=== PATIENT | male | born 1940 | race Caucasian/White ===

== ENCOUNTER → 2017-12-12 | Day surgery (SDC) | payer MEDICARE, BC ==
[2017-12-06 14:45] LABS: BASOPHILS % 0.4 % (0.0-1.0); EOSINOPHILS # (AUTO) 0.1 (0.0-0.4); EOSINOPHILS % 1.3 % (0.0-6.0); HEMATOCRIT 43.6 % (38.2-49.6); HEMOGLOBIN 14.9 g/dL (14.0-18.0); LYMPHOCYTES # (AUTO) 1.6 (1.0-3.2); LYMPHOCYTES % 28.3 % (18.0-39.1); MEAN CORPUSCULAR HEMOGLOBIN 31.8 pg (28-32); MEAN CORPUSCULAR HGB CONC 34.2 g/dL (31-35); MEAN CORPUSCULAR VOLUME 93.2 fL (81-99); MONOCYTES # (AUTO) 0.5 (0.2-0.8); NEUTROPHILS # (AUTO) 3.3 (2.1-6.9); NEUTROPHILS % 60.6 % (38.7-80.0); PLATELET COUNT 201 x10e3/uL (140-360); RED BLOOD COUNT 4.68 x10e6/uL (4.3-5.7)
[2017-12-06 15:05] LABS: ANION GAP 13.3 mmol/L (8-16); BLOOD UREA NITROGEN 16 mg/dL (7-26); BUN/CREATININE RATIO 17 (6-25); CALCIUM 9.7 mg/dL (8.4-10.2); CARBON DIOXIDE 26 mmol/L (22-29); CHLORIDE 104 mmol/L (98-107); CREATININE, SERUM 0.94 mg/dL (0.72-1.25); EST GLOMERULAR FILTRATION RATE > 60 ML/MIN (60-); GLUCOSE 158 mg/dL (74-118); POTASSIUM 4.3 mmol/L (3.5-5.1); SODIUM 139 mmol/L (136-145)
--- NOTE | 2017-12-06 18:05 | Diagnostic Imaging Report ---
EXAMINATION: PA and lateral views of the chest. COMPARISON: None CLINICAL HISTORY: Bladder retention, preop for bladder surgery DISCUSSION: Lines/tubes: None. Lungs: The lungs are well inflated. Linear densities/opacities projecting over the mid aspect of both lungs on the frontal view and anteriorly on the lateral view are likely pleural-based. There is no evidence of pneumonia or pulmonary edema. Pleura: There is no pleural effusion or pneumothorax. Heart and mediastinum: Cardiomediastinal silhouette is unremarkable. Pulmonary vasculature is normal. Bones and soft tissues: No acute bony abnormalities. Degenerative changes in the thoracic spine IMPRESSION: No acute cardiopulmonary abnormalities. Signed by: Dr. Paddy Sexton M.D. on 12/06/2017 6:01 PM
[~2017-12-12] MED LIST: ATORVASTATIN CA20 MG PO; AVODART0.5 MG PO; BELLADONNA/OPIUM 30 MG SUPP RC ONE; CEFTRIAXONE SOD 1 GM VIAL ONE; CEPHALEXIN500 MG PO; CO Q-10200 MG PO; DEXAMETHASONE SOD PHOS INJ 4 MG/ML VIAL ONE; FENTANYL CITRATE/PF 100MCG/2 ML INJ ONE; FLOMAX0.4 MG PO; IOPAMIDOL 610MG/1ML 300 MG/ML VIAL IV ONE; LIDOCAINE HCL 2% LOCAL INJ 5 ML SDV VIAL INJ ONE; LISINOPRIL10 MG PO; METFORMIN HCL500 MG PO; MIDAZOLAM HCL 2 MG/2 ML VIAL ONE; NABUMETONE750 MG; ONDANSETRON HCL INJ 2 MG/ML VIAL ONE; PROPOFOL IV EMULSION 10 MG/ML 20 ML VIAL ONE; SEVOFLURANE INHAL SOLN 250 ML PEN BTL ONE; SIMVASTATIN40 MG PO; ULTRAM50 MG PO
--- NOTE | 2018-01-23 04:06 | Operative Report ---
DATE OF PROCEDURE: December 12, 2017 PREOPERATIVE DIAGNOSES 1. Lesion at the dome of the bladder. 2. Gross hematuria. POSTOPERATIVE DIAGNOSES 1. Lesion at the dome of the bladder. 2. Gross hematuria. 3. Bulbar urethral stricture. OPERATIONS PERFORMED 1. Cystourethroscopy with calibration and dilation of bulbar urethral stricture (separate procedure performed for the diagnosis of stricture). 2. Cystourethroscopy with bilateral ureteral catheterization and retrograde ureteropyelography (separate procedure performed for the hematuria). 3. Interpretation of retrograde ureteropyelography. 4. Cystourethroscopy with bladder biopsy (separate procedure performed to evaluate the lesion at the dome of the bladder). ANESTHESIA: General. COMPLICATIONS: None. CLINICAL SUMMARY: Bret Kim is a 77-year-old man with hematuria. He was brought for the above procedure. He is aware of the risks of bleeding, infection, injury to adjacent structures, need for additional procedures, and elected to proceed. OPERATIVE PROCEDURE IN DETAIL: Informed consent was verified. Bret Kim was properly identified, taken to the operating room, placed on the cystoscopy table in supine position. Anesthesia was uneventfully begun. The patient was then carefully and gently repositioned in dorsal lithotomy position with all pressure points well padded. His genitalia were prepared and draped in usual sterile fashion. The 22.5-Chilean cystoscope sheath with the visual obturator in place was atraumatically inserted to patient's urethra. It was guided down the normal distal urethra to the bulbar region, where there was a urethral stricture. 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 The remainder of the prostate was open, status post photoselective vaporization of the prostate previously. Going to the patient's bladder, where panendoscopy revealed bladder diverticula throughout the bladder. There was a diverticulum that was posteriorly near the dome and there was a lesion that appeared unusual at the dome of the bladder. Should such a lesion be positive for cancer, then this patient would be amenable to a partial cystectomy. An 8-Chilean catheter was used cannulate each ureter and retrograde ureteropyelography was performed. Interpretation retrograde ureteropyelography: Contrast was instilled in retrograde fashion bilaterally. There were no tumors, no stones, and no diverticula. Unobstructed drainage was observed bilaterally fluoroscopically. Directed bladder biopsies were then taken over the region of this lesion in the dome of the bladder. We then utilized the Bugbee electrode to fulgurate and eliminate the lesions and its surroundings. The patient's bladder was drained. The cystoscope was withdrawn and the patient was uneventfully reversed from anesthesia and taken to recovery room in stable condition. There were no complications to the procedure. He tolerated the procedure well. Explicit postop instructions were given. Follow the patient up in the office. Job#: [id number] CQ
== END | disposition home or self-care (01) ==
LOC: OR 12:18
PROVIDERS: ATTEND Urology
DX: N32.3 Diverticulum of bladder (principal); N35.9 Urethral stricture, unspecified; N40.1 Benign prostatic hyperplasia with lower urinary tract symptoms; N13.8 Other obstructive and reflux uropathy; R97.20 Elevated prostate specific antigen [PSA]; R39.14 Feeling of incomplete bladder emptying; N39.0 Urinary tract infection, site not specified; R81 Glycosuria; N41.1 Chronic prostatitis; K42.9 Umbilical hernia without obstruction or gangrene; I10 Essential (primary) hypertension; E11.9 Type 2 diabetes mellitus without complications; E78.00 Pure hypercholesterolemia, unspecified; Z01.810 Encounter for preprocedural cardiovascular examination; Z01.812 Encounter for preprocedural laboratory examination; Z01.818 Encounter for other preprocedural examination; Z79.84 Long term (current) use of oral hypoglycemic drugs; Z87.891 Personal history of nicotine dependence
CPT/HCPCS: 36415 ×2; 52214; 71046; 74420; 80048; 82948; 85025; 88305; 93005; C1758; J0696; J1100; J2001; J2250; J2405; Q9967